=== PATIENT | female | born 1945 | race Caucasian/White ===

== ENCOUNTER 2017-07-09 18:50 | Inpatient (IN) | payer MEDICARE, BC ==
[~2017-07-09] VITALS: Ht 160 cm; Wt 54.9 kg
[~2017-07-09 18:50] MED LIST: OMEP20CA10 PO; [UNRECOGNIZED DRUG - CODE] PO
[2017-07-09] MEDS ORDERED: TRAZODONE PO (19:10)
[2017-07-09] MEDS ORDERED: XANAX PO (19:10)
--- NOTE | 2017-07-09 19:25 | NUR ---
Patient BIB private ambulance for Medical Clearance and GPS admission from [facility]. Medical Clearance performed at [facility]. Patient arrives on 5150 hold for GD. Per hold, patient has not paid rent in 2 years and was served with eviction papers at which time concern by joyce and surgical services manager was that the patient was "unstable." Per hold, patient is concerned that she is being watched and poisoned by neighbors and that she has "over 100 stalkers." Patient to room 4A. 1:1 sitter at bedside for safety.
--- NOTE | 2017-07-09 21:17 | NUR ---
Le Medically Cleared by ERMD. Pt. admitted to GPS, under care of Dr. Oneal Belongs List completed
[2017-07-09] MEDS ORDERED: MAG HYDROX/AL HYDROX/SIMETH 30 ML LIQUID UDC PO PRN (22:00)
[2017-07-09] MEDS ORDERED: MAGNESIUM HYDROXIDE 30 ML LIQUID UDC PO PRN (22:00)
[2017-07-09 22:41] VITALS: BP 127/69
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
[2017-07-10 07:30] VITALS: BP 134/71
[2017-07-10] MEDS: LORAZEPAM 1 MG TABLET PO PRN (12:20)
--- NOTE | 2017-07-10 12:34 | NUR ---
Initial Discharge Instructions: Pt is currently being evicted from [facility] [[address], [place] [address]; [phone]]. Pt reports that she has "someone, a friend, who will take her driving around to find a new apartment." Pt reported that she would not want to return to [facility]. Pt is not consenting for SS to contact any kin on her facesheet. SW will collaborate with pt and MD regarding appropriate discharge disposition. SW will form a safe and proper discharge.
--- NOTE | 2017-07-10 14:41 | NUR ---
Firearms Report: LAMIN completed and submitted [facility] Firearms Report on 07/10/17.
[2017-07-10 15:00] VITALS: BP 133/83
[2017-07-10 20:22] VITALS: BP 145/66
[2017-07-10] MEDS: ATORVASTATIN 20 MG TABLET PO SCH ×2 (20:39→23:05)
[2017-07-10] MEDS ORDERED: ALPRAZOLAM 0.5 MG TABLET ONE (23:07)
--- NOTE | 2017-07-11 06:27 | NUR ---
NSG/GPS Unable to administer hs medication (first dose to be started 07/10/17) ordered by Dr. Oneal, verification still pending.
[2017-07-11 07:30] VITALS: BP 150/76
[2017-07-11 07:40] LABS: BASOPHILS % (AUTO) 0.6 % (0.0-2.0); EOSINOPHILS # (AUTO) 0.1 K/uL (0.0-0.7); EOSINOPHILS % (AUTO) 1.9 % (0.0-7.0); HEMATOCRIT 39.6 % (31.2-41.9); HEMOGLOBIN 12.8 g/dL (10.9-14.3); LYMPHOCYTES # (AUTO) 2.1 K/uL (20.0-40.0); MEAN CORPUSCULAR HEMOGLOBIN 26.9 uug (24.7-32.8); MEAN CORPUSCULAR HGB CONC 32 g/dL (32.3-35.6); MEAN CORPUSCULAR VOLUME 83.1 fL (75.5-95.3); MONOCYTES # (AUTO) 0.7 K/uL (2.0-10.0); NEUTROPHILS # (AUTO) 4.4 K/uL (1.8-8.9); NEUTROPHILS % (AUTO) 59.5 % (38.5-71.5); PLATELET COUNT (AUTO) 174 K/uL (179-408); RED BLOOD CELL COUNT(AUTO) 4.76 MIL/uL (3.63-4.92); WHITE BLOOD COUNT (AUTO) 7.4 K/uL (3.8-11.8)
[2017-07-11 07:54] LABS: CARBON DIOXIDE 29 mmol/L (21-32); CHLORIDE 107 mmol/L (98-107); CREATININE 0.8 mg/dL (0.6-1.3); GLUCOSE 101 mg/dL (74-106); PHOSPHOROUS 4.1 mg/dL (2.5-4.9); POTASSIUM 4.6 mmol/L (3.5-5.1); UREA NITROGEN, BLOOD 16 mg/dL (7-18)
[2017-07-11] MEDS: PANTOPRAZOLE SODIUM 40 MG TABLET.DR PO SCH (08:16)
[2017-07-11] MEDS: LEVOTHYROXINE SODIUM 175 MCG TABLET PO SCH (08:16)
[2017-07-11] MEDS: ALPRAZOLAM 0.5 MG TABLET PO SCH ×2 (08:16→16:17)
[2017-07-11] MEDS: risperiDONE 2 MG TABLET PO SCH ×2 (08:23→22:00)
[2017-07-11] MEDS: CARBAMAZEPINE 200 MG TABLET PO SCH ×2 (08:24→22:00)
--- NOTE | 2017-07-11 08:25 | NUR ---
Pt quite paranoid and delusional at this time. Frequently at nurses station, teary and anxious, requesting different things. Making statements such as stating her brother shot and killed her mother and all the doctors are "fucking each other" and are in cahoots against her. Refuses Tegretol and Risperdal, stating she is not psychotic, their is nothing wrong with her, and she will call the Ombudsmen. States she is "firing my fucking doctor" for giving her "medications that make me sick". Risks and benefits explained.
[2017-07-11] MEDS ORDERED: risperiDONE 0.5 MG TABLET PO SCH (09:00)
[2017-07-11] MEDS ORDERED: risperiDONE 1 MG TABLET PO SCH (09:00)
[2017-07-11] MEDS ORDERED: ALPRAZOLAM 0.5 MG TABLET PO SCH (09:00)
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
[2017-07-11 15:18] VITALS: BP 164/82
[2017-07-11 20:39] VITALS: BP 112/65
[2017-07-11] MEDS: LACTOBACILLUS RHAMNOSUS GG 1 EACH CAPSULE PO SCH (22:03)
[2017-07-11] MEDS: TRAZODONE 100 MG TABLET PO SCH (22:03)
[2017-07-11] MEDS: ATORVASTATIN 20 MG TABLET PO SCH (22:04)
[2017-07-11] MEDS: LORAZEPAM 1 MG TABLET PO PRN (23:34)
[2017-07-12] MEDS: ZOLPIDEM 5 MG TABLET PO PRN (01:34)
[2017-07-12] MEDS: LEVOTHYROXINE SODIUM 175 MCG TABLET PO SCH (06:59)
[2017-07-12] MEDS: PANTOPRAZOLE SODIUM 40 MG TABLET.DR PO SCH (06:59)
[2017-07-12 07:30] VITALS: BP 128/66
[2017-07-12] MEDS: risperiDONE 2 MG TABLET PO SCH (08:12)
[2017-07-12] MEDS: CARBAMAZEPINE 200 MG TABLET PO SCH ×2 (08:12→21:15)
[2017-07-12] MEDS: ALPRAZOLAM 0.5 MG TABLET PO SCH ×2 (08:12→17:03)
[2017-07-12] MEDS: LACTOBACILLUS RHAMNOSUS GG 1 EACH CAPSULE PO SCH ×2 (08:12→21:22)
[2017-07-12 16:00] VITALS: BP 118/68
[2017-07-12 20:02] VITALS: BP 117/50
[2017-07-12] MEDS ORDERED: risperiDONE 2 MG TABLET PO SCH (21:00)
[2017-07-12] MEDS: ATORVASTATIN 20 MG TABLET PO SCH (21:14)
[2017-07-12] MEDS: TRAZODONE 100 MG TABLET PO SCH (21:14)
[2017-07-12] MEDS: risperiDONE 1 MG TABLET PO SCH (21:15)
[2017-07-12] MEDS: LORAZEPAM 1 MG TABLET PO PRN (23:12)
[2017-07-13] MEDS: LEVOTHYROXINE SODIUM 175 MCG TABLET PO SCH (06:36)
[2017-07-13] MEDS: PANTOPRAZOLE SODIUM 40 MG TABLET.DR PO SCH (06:36)
[2017-07-13 07:30] VITALS: BP 120/63
[2017-07-13] MEDS: ALPRAZOLAM 0.5 MG TABLET PO SCH ×2 (08:13→16:27)
[2017-07-13] MEDS: CARBAMAZEPINE 200 MG TABLET PO SCH ×2 (08:13→21:53)
[2017-07-13] MEDS: risperiDONE 1 MG TABLET PO SCH ×2 (08:16→21:53)
[2017-07-13] MEDS: LACTOBACILLUS RHAMNOSUS GG 1 EACH CAPSULE PO SCH ×2 (08:16→21:53)
[2017-07-13 15:28] VITALS: BP 101/71
[2017-07-13 19:40] VITALS: BP 115/54
[2017-07-13] MEDS: TRAZODONE 100 MG TABLET PO SCH (21:53)
[2017-07-13] MEDS: ATORVASTATIN 20 MG TABLET PO SCH (21:53)
--- NOTE | 2017-07-13 22:00 | NUR ---
received to care, pleasant, but appearing anxious, pacing the hallway, speech is rapid, asking for multiple medications for anxiety. routine bedtime medications were given, but she immediately wanted more medication. as of 2199, she is lying in bed, awaiting PRN medications. states "i am going to lose my mind, if i dont get some sleep" warm milk, snack, and emotional support provided. will continue to monitor closely.
[2017-07-13] MEDS: LORAZEPAM 1 MG TABLET PO PRN (23:18)
--- NOTE | 2017-07-13 23:18 | NUR ---
remains awake, and restless. PRN ativan was given, at this time. currently lying in bed. will continue to monitor closely.
[2017-07-14] MEDS: ZOLPIDEM 5 MG TABLET PO PRN (00:19)
--- NOTE | 2017-07-14 00:19 | NUR ---
remains awake. PRN ambien was given, at this time.
--- NOTE | 2017-07-14 00:40 | NUR ---
appears to be asleep. no distress noted.
[2017-07-14] MEDS: LEVOTHYROXINE SODIUM 175 MCG TABLET PO SCH (06:48)
[2017-07-14] MEDS: PANTOPRAZOLE SODIUM 40 MG TABLET.DR PO SCH (06:48)
[2017-07-14 07:30] VITALS: BP 130/64
[2017-07-14] MEDS: ALPRAZOLAM 0.5 MG TABLET PO SCH ×2 (09:36→17:00)
[2017-07-14] MEDS: risperiDONE 1 MG TABLET PO SCH ×2 (09:36→20:49)
[2017-07-14] MEDS: CARBAMAZEPINE 200 MG TABLET PO SCH ×2 (09:36→20:48)
[2017-07-14] MEDS: LACTOBACILLUS RHAMNOSUS GG 1 EACH CAPSULE PO SCH ×2 (09:37→20:56)
--- NOTE | 2017-07-14 13:46 | NUR ---
Discharge Planning Note: SW met with patient at bedside to further discuss discharge planning. Pt stated, "I'm feeling down today... you could say that I'm labile." Pt presented tearful throughout conversation. Per pt, she has a friend, Stanley, who has "been taking care of everything for her." Pt reported that she has been speaking with Stanley about coming to pick her up when she is ready for discharge. Patient gave consent to contact Stanley ([phone]). SW attempted to call Stanley to discuss discharge planning, but had to leave a message. SW will continue to follow-up.
[2017-07-14 15:42] VITALS: BP 111/63
--- NOTE | 2017-07-14 19:02 | NUR ---
pt still delusional and neesd reassurrance in all things refused xanax until hs. will pass on
[2017-07-14 20:11] VITALS: BP 141/69
[2017-07-14] MEDS: TRAZODONE 100 MG TABLET PO SCH (20:48)
[2017-07-14] MEDS: ATORVASTATIN 20 MG TABLET PO SCH (20:49)
[2017-07-14] MEDS ORDERED: ALPRAZOLAM 0.25 MG TABLET PO ONE (21:45)
--- NOTE | 2017-07-14 22:00 | NUR ---
received to care, pleasant upon approach. appears calmer, and more isolative tonight. also observed to be crying, but refused to elaborate about why. compliant with medications, and staff direction. as of 2199, she remains awake, in bed. no distress noted. will continue to monitor closely.
--- NOTE | 2017-07-14 23:00 | NUR ---
appears to be asleep. no distress noted.
[2017-07-15] MEDS: PANTOPRAZOLE SODIUM 40 MG TABLET.DR PO SCH (06:40)
[2017-07-15] MEDS: LEVOTHYROXINE SODIUM 175 MCG TABLET PO SCH (06:40)
[2017-07-15 07:30] VITALS: BP 126/61
--- NOTE | 2017-07-15 07:34 | NUR ---
received in bed awake, pleasant upon approach, routine medications were given, will continue to monitor closely.bed alarm on for safety.
[2017-07-15] MEDS: LACTOBACILLUS RHAMNOSUS GG 1 EACH CAPSULE PO SCH ×2 (08:51→20:12)
[2017-07-15] MEDS: risperiDONE 1 MG TABLET PO SCH ×2 (08:51→20:12)
[2017-07-15] MEDS: CARBAMAZEPINE 200 MG TABLET PO SCH ×3 (08:52→17:00)
[2017-07-15 16:10] VITALS: BP 127/65
[2017-07-15] MEDS: ACETAMINOPHEN 325 MG TABLET PO PRN (17:00)
[2017-07-15] MEDS: ALPRAZOLAM 0.25 MG TABLET PO SCH (20:12)
[2017-07-15] MEDS: ATORVASTATIN 20 MG TABLET PO SCH (20:12)
[2017-07-15] MEDS: TRAZODONE 100 MG TABLET PO SCH (20:12)
[2017-07-15 20:28] VITALS: BP 150/84
--- NOTE | 2017-07-15 22:00 | NUR ---
received to care, lying in bed, appearing anxious, upon approach. was very tearful. stated she was upset about having to stay in the hospital, and wants to be released, so she can use her medical marijuana. bedtime medications were given at 1999. and, as of 2199, she appears to be asleep. no distress noted. will continue to monitor closely.
[2017-07-16] MEDS: LORAZEPAM 1 MG TABLET PO PRN (03:31)
--- NOTE | 2017-07-16 03:31 | NUR ---
pt is now awake. c/o anxiety; PRN ativan was given at this time.
--- NOTE | 2017-07-16 04:00 | NUR ---
appears to be asleep. no distress noted.
[2017-07-16] MEDS: LEVOTHYROXINE SODIUM 175 MCG TABLET PO SCH (06:25)
[2017-07-16] MEDS: PANTOPRAZOLE SODIUM 40 MG TABLET.DR PO SCH (06:26)
[2017-07-16 07:30] VITALS: BP 132/60
[2017-07-16] MEDS: LACTOBACILLUS RHAMNOSUS GG 1 EACH CAPSULE PO SCH ×2 (12:00→20:32)
[2017-07-16] MEDS: CARBAMAZEPINE 200 MG TABLET PO SCH ×3 (12:01→17:00)
[2017-07-16] MEDS: risperiDONE 1 MG TABLET PO SCH ×2 (12:01→20:29)
--- NOTE | 2017-07-16 12:51 | NUR ---
Gps/Nursing- Patient remains emotionally labile , criying spells noted, verbalized feelings of being depressed, claimed medications administered making her sick. Instructed to talk to her psychiatrist.Patient attended part of her group therapy, noted happy at the activity room, laughing and dancing.Hesitancy noted in taking her tegretol claimed making her sick.
--- NOTE | 2017-07-16 15:09 | NUR ---
Gps/Meat Packager- Patient verbalized, she will not take anymore of the tegretol, does not agree with her, claimed it making her sick, instructed and encouraged to talk to Dr Oneal.
[2017-07-16 15:14] VITALS: BP 117/74
--- NOTE | 2017-07-16 17:49 | NUR ---
Gps/Crew Leader- Reoffered tegretol, patient refused, claimed it made her sick, nauseated, no vomiting noted.
[2017-07-16] MEDS: ACETAMINOPHEN 325 MG TABLET PO PRN (18:25)
[2017-07-16 20:00] VITALS: BP 126/60
[2017-07-16] MEDS: TRAZODONE 100 MG TABLET PO SCH (20:29)
[2017-07-16] MEDS: ALPRAZOLAM 0.25 MG TABLET PO SCH (20:29)
[2017-07-16] MEDS: ATORVASTATIN 20 MG TABLET PO SCH (20:29)
[2017-07-16] MEDS ORDERED: LORAZEPAM 1 MG TABLET PO PRN (21:30)
--- NOTE | 2017-07-16 22:00 | NUR ---
received to care, ambulating about the unit, appearing anxious and tearful, but pleasant upon approach. she calmed down after taking her bedtime medications, but continues to refuse tegretol, stating it makes her sick. she was encouraged to discuss this with Dr Oneal, who was making rounds, at the time. as of 2199, she appears to be asleep. no distress noted. will continue to monitor closely.
--- NOTE | 2017-07-17 06:00 | NUR ---
slept 7.0 hours, total. continues to sleep. no distress noted.
[2017-07-17] MEDS: PANTOPRAZOLE SODIUM 40 MG TABLET.DR PO SCH (07:01)
[2017-07-17] MEDS: LEVOTHYROXINE SODIUM 175 MCG TABLET PO SCH (07:01)
[2017-07-17 07:30] VITALS: BP 111/48
[2017-07-17] MEDS: CARBAMAZEPINE 200 MG TABLET PO SCH ×3 (09:00→17:00)
[2017-07-17] MEDS: risperiDONE 1 MG TABLET PO SCH ×2 (09:03→20:36)
[2017-07-17] MEDS: LACTOBACILLUS RHAMNOSUS GG 1 EACH CAPSULE PO SCH ×2 (09:03→20:36)
[2017-07-17] MEDS: ACETAMINOPHEN 325 MG TABLET PO PRN (12:01)
[2017-07-17 15:41] VITALS: BP 138/64
--- NOTE | 2017-07-17 16:00 | NUR ---
Gps/Sheet Metal Former- Patient claimed she does not want to take any Psych.medications anymore, it making her sick, not feeling too good, when instructed to elaborate her complaints, she starting to cry, encouraged continued verbalizations of her feelings and needs.
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
[2017-07-17] MEDS ORDERED: CARBAMAZEPINE 200 MG TABLET PO ONE (20:30)
[2017-07-17] MEDS: ALPRAZOLAM 0.25 MG TABLET PO SCH (20:34)
[2017-07-17] MEDS: TRAZODONE 100 MG TABLET PO SCH (20:35)
[2017-07-17] MEDS: ATORVASTATIN 20 MG TABLET PO SCH (20:36)
[2017-07-17 20:40] VITALS: BP 159/77
[2017-07-18] MEDS: PANTOPRAZOLE SODIUM 40 MG TABLET.DR PO SCH (06:03)
[2017-07-18] MEDS: LEVOTHYROXINE SODIUM 175 MCG TABLET PO SCH (06:03)
[2017-07-18 07:30] VITALS: BP 142/58
[2017-07-18] MEDS: CARBAMAZEPINE 200 MG TABLET PO SCH ×3 (08:32→16:35)
[2017-07-18] MEDS: risperiDONE 1 MG TABLET PO SCH ×2 (08:32→22:49)
[2017-07-18] MEDS: LACTOBACILLUS RHAMNOSUS GG 1 EACH CAPSULE PO SCH ×2 (08:33→22:47)
[2017-07-18 15:57] VITALS: BP 125/60
[2017-07-18 20:47] VITALS: BP 135/66
[2017-07-18] MEDS: ACETAMINOPHEN 325 MG TABLET PO PRN (21:09)
[2017-07-18] MEDS: ALPRAZOLAM 0.25 MG TABLET PO SCH (22:46)
[2017-07-18] MEDS: TRAZODONE 100 MG TABLET PO SCH (22:48)
[2017-07-18] MEDS: ATORVASTATIN 20 MG TABLET PO SCH (22:48)
[2017-07-19] MEDS: LEVOTHYROXINE SODIUM 175 MCG TABLET PO SCH (07:17)
[2017-07-19] MEDS: PANTOPRAZOLE SODIUM 40 MG TABLET.DR PO SCH (07:17)
--- NOTE | 2017-07-19 08:09 | NUR ---
Patient slept 6.0 hours throkughout the night. Monitoring and observations continiue.
[2017-07-19 08:10] LABS: BASOPHILS % (AUTO) 0.6 % (0.0-2.0); EOSINOPHILS # (AUTO) 0.1 K/uL (0.0-0.7); HEMATOCRIT 38.4 % (31.2-41.9); HEMOGLOBIN 12.6 g/dL (10.9-14.3); LYMPHOCYTES # (AUTO) 1.3 K/uL (20.0-40.0); MEAN CORPUSCULAR HEMOGLOBIN 27.6 uug (24.7-32.8); MEAN CORPUSCULAR HGB CONC 33 g/dL (32.3-35.6); MEAN CORPUSCULAR VOLUME 84.2 fL (75.5-95.3); MONOCYTES # (AUTO) 0.6 K/uL (2.0-10.0); NEUTROPHILS % (AUTO) 70.4 % (38.5-71.5); PLATELET COUNT (AUTO) 175 K/uL (179-408); RED BLOOD CELL COUNT(AUTO) 4.56 MIL/uL (3.63-4.92); WHITE BLOOD COUNT (AUTO) 7.1 K/uL (3.8-11.8)
[2017-07-19 08:20] LABS: THYROID STIMULATING HORMONE 0.017 mIU/mL (0.358-3.740)
[2017-07-19 08:39] LABS: ALANINE AMINOTRANSFERASE 21 U/L (14-59); ALKALINE PHOSPHATASE 101 U/L (50-136); ASPARTATE AMINOTRANSFERASE 15 U/L (15-37); BILIRUBIN,TOTAL 0.4 mg/dL (0.2-1.0); CARBON DIOXIDE 29 mmol/L (21-32); CHLORIDE 101 mmol/L (98-107); CREATININE 0.7 mg/dL (0.6-1.3); GLUCOSE 99 mg/dL (74-106); MAGNESIUM 1.9 mg/dL (1.8-2.4); PHOSPHOROUS 4.3 mg/dL (2.5-4.9); POTASSIUM 3.8 mmol/L (3.5-5.1); TOTAL PROTEIN, SERUM 6.7 g/dL (6.4-8.2); UREA NITROGEN, BLOOD 17 mg/dL (7-18)
[2017-07-19 09:37] VITALS: BP 123/55
[2017-07-19] MEDS: LACTOBACILLUS RHAMNOSUS GG 1 EACH CAPSULE PO SCH ×2 (09:41→21:02)
[2017-07-19] MEDS: CARBAMAZEPINE 200 MG TABLET PO SCH ×3 (09:41→16:33)
[2017-07-19] MEDS: risperiDONE 1 MG TABLET PO SCH ×2 (09:41→21:05)
[2017-07-19 15:51] VITALS: BP 129/62
[2017-07-19 20:38] VITALS: BP 130/60
--- NOTE | 2017-07-19 21:00 | NUR ---
RECEIVED PATIENT IN THE DAY ROOM. SHE WAS NOTED A/O X 3. SHE IS ABLE TO AMBULATED WITH STEADY GAIT. PT WAS NOTED WITH DEPRESSED, BLUNTED AFFECT. POOR INSIGHT AND POOR JUDGMENT NOTED. UPON INTERVIEW, SHE CRIED (NO TEARS). SHE ALSO STATED THAT "TEGRETOL IS MAKING ME SICK." PT WAS REASSURED AND REDIRECTED. MYLANTA PO PRN WAS GIVEN FOR UPSET. SHE WAS COMPLIANT WITH [facility] MEDICATION REGIMENT. WILL CONTINUE TO MONITOR CLOSELY.
[2017-07-19] MEDS: ATORVASTATIN 20 MG TABLET PO SCH (21:04)
[2017-07-19] MEDS: TRAZODONE 100 MG TABLET PO SCH (21:04)
[2017-07-19] MEDS: ALPRAZOLAM 0.25 MG TABLET PO SCH (21:04)
[2017-07-20] MEDS: LEVOTHYROXINE SODIUM 175 MCG TABLET PO SCH (06:46)
[2017-07-20] MEDS: PANTOPRAZOLE SODIUM 40 MG TABLET.DR PO SCH (06:47)
[2017-07-20 07:30] VITALS: BP 120/62
[2017-07-20] MEDS: LACTOBACILLUS RHAMNOSUS GG 1 EACH CAPSULE PO SCH ×2 (09:18→20:51)
[2017-07-20] MEDS: CARBAMAZEPINE 200 MG TABLET PO SCH ×3 (09:18→16:34)
[2017-07-20] MEDS: risperiDONE 1 MG TABLET PO SCH ×2 (09:18→20:50)
[2017-07-20 16:11] VITALS: BP 120/45
[2017-07-20] MEDS: ACETAMINOPHEN 325 MG TABLET PO PRN (19:37)
[2017-07-20 19:55] VITALS: BP 122/50
[2017-07-20] MEDS: ALPRAZOLAM 0.25 MG TABLET PO SCH (20:49)
[2017-07-20] MEDS: TRAZODONE 100 MG TABLET PO SCH (20:50)
[2017-07-20] MEDS: ATORVASTATIN 20 MG TABLET PO SCH (20:50)
--- NOTE | 2017-07-20 22:00 | NUR ---
received to care, pleasant upon approach. compliant with medications, and staff direction, but remains needy and suspicious, at times. as of 2199, she remains awake, in bed. no distress noted. will continue to monitor closely.
--- NOTE | 2017-07-21 06:00 | NUR ---
slept 7.0 hours. no distress noted.
[2017-07-21] MEDS: LEVOTHYROXINE SODIUM 175 MCG TABLET PO SCH (06:12)
[2017-07-21] MEDS: PANTOPRAZOLE SODIUM 40 MG TABLET.DR PO SCH (06:12)
[2017-07-21 07:30] VITALS: BP 136/64
[2017-07-21] MEDS: CARBAMAZEPINE 200 MG TABLET PO SCH ×3 (09:05→17:24)
[2017-07-21] MEDS: risperiDONE 1 MG TABLET PO SCH ×2 (09:05→20:55)
[2017-07-21] MEDS: LACTOBACILLUS RHAMNOSUS GG 1 EACH CAPSULE PO SCH ×2 (09:05→20:55)
[2017-07-21] MEDS: ACETAMINOPHEN 325 MG TABLET PO PRN (14:28)
[2017-07-21 17:31] VITALS: BP 134/67
[2017-07-21 20:00] VITALS: BP 142/61
[2017-07-21] MEDS: ATORVASTATIN 20 MG TABLET PO SCH (20:55)
[2017-07-21] MEDS: ALPRAZOLAM 0.25 MG TABLET PO SCH (20:55)
[2017-07-21] MEDS: TRAZODONE 100 MG TABLET PO SCH (20:55)
--- NOTE | 2017-07-21 22:00 | NUR ---
received to care, pleasant upon approach, but slightly anxious. compliant with medications, and staff direction, as of 0, she appears to be asleep. no distress noted. will continue to monitor closely.
[2017-07-22] MEDS: LEVOTHYROXINE SODIUM 175 MCG TABLET PO SCH (06:34)
[2017-07-22] MEDS: PANTOPRAZOLE SODIUM 40 MG TABLET.DR PO SCH (06:34)
[2017-07-22 07:30] VITALS: BP 135/81
--- NOTE | 2017-07-22 07:50 | NUR ---
received in bed awake, pleasant upon approach, routine medications were given, will continue to monitor closely.bed alarm on for safety.
[2017-07-22] MEDS: risperiDONE 1 MG TABLET PO SCH ×2 (08:05→20:36)
[2017-07-22] MEDS: CARBAMAZEPINE 200 MG TABLET PO SCH ×3 (08:05→16:06)
[2017-07-22] MEDS: LACTOBACILLUS RHAMNOSUS GG 1 EACH CAPSULE PO SCH ×2 (08:05→20:41)
[2017-07-22] MEDS: ACETAMINOPHEN 325 MG TABLET PO PRN (12:10)
[2017-07-22 16:00] VITALS: BP 116/56
[2017-07-22 20:00] VITALS: BP 157/69
[2017-07-22] MEDS: ALPRAZOLAM 0.25 MG TABLET PO SCH (20:36)
[2017-07-22] MEDS: TRAZODONE 100 MG TABLET PO SCH (20:37)
[2017-07-22] MEDS: ATORVASTATIN 20 MG TABLET PO SCH (20:37)
--- NOTE | 2017-07-22 22:00 | NUR ---
received to care, pleasant upon approach. compliant with medications, and staff direction, as of 0, she appears to be asleep. no distress noted. will continue to monitor closely.
[2017-07-23] MEDS: PANTOPRAZOLE SODIUM 40 MG TABLET.DR PO SCH (06:07)
[2017-07-23] MEDS: LEVOTHYROXINE SODIUM 175 MCG TABLET PO SCH (06:07)
[2017-07-23 07:30] VITALS: BP 138/66
[2017-07-23] MEDS: CARBAMAZEPINE 200 MG TABLET PO SCH ×2 (09:00→13:00)
[2017-07-23] MEDS: LACTOBACILLUS RHAMNOSUS GG 1 EACH CAPSULE PO SCH (09:32)
[2017-07-23] MEDS: risperiDONE 1 MG TABLET PO SCH (09:32)
--- NOTE | 2017-07-23 11:21 | NUR ---
Gps/Nursing- refusing to take her am tegretol, claimed she takes it from time to time, but not all the time, it makes her feel weird per patient.Informed will review and informed Dr López re- inconsistently in taking her tegretol.
--- NOTE | 2017-07-23 12:36 | NUR ---
DC Note: Patient will be discharged to the care of her friend, Ioana via private transportation at 2pm. Patient and friend refused to give address as to where patient will be staying. Patient refused Board & Care and SNF placement, even though it was offered to her. Spoke with patient's friend, Ioana ([phone]) who has agreed to provide transportation and is agreeable with discharge plans. Patient is aware and agreeable with discharge plans. Patient was referred to [facility] for [facility] referrals ([phone]). Patient was given list of referrals for outpatient Psychiatrists for follow-up. Patient was also given caregiving referrals to [facility], [facility], and [facility]. Patient was also given transportation/food delivery referrals including [employer] ([phone]) and [employer]. Patient was provided with a brief substance abuse intervention and referred to [facility] , [facility] , [facility] . For smoking cessation, patient was referred to [employer] 800-LUNGUSA and [employer] [phone]. Addendum: 07/23/17 at 1431 by ALYSON KIMLBE Updated DC Note: Received call from patient's friend Ioana, who states she is unable to waste picker the patient at this time. LAMIN informed her that discharge cannot be delayed. Pt has agreed to be discharged to [facility] [[address] [place] [address]; ] via ambulance. Patient is aware and agreeable with discharge plans. Patient will follow-up at the facility with Dr. Levy (Heddler Tier) and Dr. Gipson (Psychiatrist).
[2017-07-23 15:53] VITALS: BP 139/73
--- NOTE | 2017-07-23 16:21 | NUR ---
Gps/Fruit Harvester Machine Operator- Discharged to [facility] in [place] via ambulance. Report given to Nurse Campo. All belongings given back to patient, own home medications( returned from Pharmacy) , cell phone and fitter's assistant, wallet from [facility].Patient anxious, reassured. discharged in no signs of any distress.
== END 2017-07-23 16:20 | DRG 885 ==
LOC: ER 18:51 → GPS 21:17
PROVIDERS: ADMIT Psychiatry & Neurology Psychiatry; ATTEND Nurse Practitioner Acute Care
PROC: 0HBRXZZ Excision of Toe Nail, External Approach (ICD-10-PCS; principal; 2017-07-13)
PROC: 0HDQXZZ Extraction of Finger Nail, External Approach (ICD-10-PCS; 2017-07-13)
DX: F31.64 Bipolar disorder, current episode mixed, severe, with psychotic features (principal); I11.9 Hypertensive heart disease without heart failure; E03.9 Hypothyroidism, unspecified; L60.0 Ingrowing nail; M20.21 Hallux rigidus, right foot; M20.22 Hallux rigidus, left foot; L60.3 Nail dystrophy; Z90.710 Acquired absence of both cervix and uterus; Z87.891 Personal history of nicotine dependence; E78.5 Hyperlipidemia, unspecified; E53.8 Deficiency of other specified B group vitamins; Z79.899 Other long term (current) drug therapy; F90.9 Attention-deficit hyperactivity disorder, unspecified type; R78.4 Finding of other drugs of addictive potential in blood
CPT/HCPCS: 36415; 71045; 82306; 83735; 84100; 84443; 85025; 93005; A4663